=== PATIENT | female | born 1955 | race Hispanic/Latino ===

== ENCOUNTER 2021-09-11 19:10 | Emergency (ER) | payer OTHER ==
--- NOTE | 2021-09-11 22:15 | ER ---
Nurse's Notes [facility] Name: Erlinda Mullins Age: 65 yrs Sex: Female : 1955 Arrival Date: 09/11/2021 Time: 19:11 Bed External Waiting Private MD: Diagnosis: Presentation: 09/11 19:47 Chief complaint: Patient states: rt lower back pain x 2 months, generalized weakness, sj1 and intermittent SOB x 3-4 days. Coronavirus screen: Vaccine status: Patient reports being unvaccinated. Initial Sepsis Screen: Does the patient meet any 2 criteria? No. Patient's initial sepsis screen is negative. Does the patient have a suspected source of infection? No. Patient's initial sepsis screen is negative. Risk Assessment: Do you want to hurt yourself or someone else?. Onset of symptoms was September 06, 2021. 19:47 Method Of Arrival: Wheelchair [facility] 19:47 Acuity: LUPILLO 3 1 Vital Signs: 19:47 BP 150 / 64; Pulse 90; Resp 16 S; Temp 99.3(O); Pulse Ox 99% on R/A; Weight 49.9 kg; sj1 Height 5 ft. 9 in. (175.26 cm); Pain 9/10; 19:47 Body Mass Index 16.24 (49.90 kg, 175.26 cm) 1 ED Course: 19:11 Patient arrived in ED. 2 19:50 Triage completed. 1 Administered Medications: No medications were administered Outcome: 22:14 Patient left the ED. em Signatures: Patric Lynn RN RN em Oswaldo Roa 2 Belkys Ferrera RN RN sj1
[2021-09-11 22:18] VITALS: BP 150/64; TEMP 99.3; O2SAT 99
== END 2021-09-11 22:14 | disposition left against medical advice (07) ==
LOC: ER 19:10
DX: Z53.21 Procedure and treatment not carried out due to patient leaving prior to being seen by health care provider (principal)
CPT/HCPCS: 99281